=== PATIENT | female | born 1970 | race Caucasian/White ===

== ENCOUNTER 2018-06-14 09:39 | Emergency (ER) | payer OTHER ==
[~2018-06-14] VITALS: Ht 160 cm; Wt 72.6 kg
[2018-06-14 09:56] VITALS: BP 148/92
[2018-06-14] MEDS: ONDANSETRON 4 MG ODT PO ONE (10:36)
[2018-06-14] MEDS: KETOROLAC 60 MG/2 ML VIAL IM ONE (10:40)
[2018-06-14 11:40] VITALS: BP 148/92
== END 2018-06-14 11:40 | disposition home or self-care (01) ==
LOC: MED 09:39
DX: J32.9 Chronic sinusitis, unspecified (principal); R11.2 Nausea with vomiting, unspecified; M54.2 Cervicalgia; Z88.0 Allergy status to penicillin
CPT/HCPCS: 81002; 81025; 96372; 99283; J1885; Q0162

== ENCOUNTER 2023-06-27 22:31 | Emergency (ER) | payer OTHER ==
[~2023-06-27] VITALS: Ht 162.6 cm; Wt 67.1 kg
[2023-06-27 22:45] VITALS: BP 116/70; PULSE 90; RESP 18; TEMP 97.9; O2SAT 97
[2023-06-28 01:04] LABS: FLU A ANTIGEN negative (NEGATIVE); FLU B ANTIGEN NEGATIVE (NEGATIVE)
[2023-06-28] MEDS ORDERED: guaiFENesin DM 200/20 MG-10 ML 10 ML UDC PO ONE (01:10)
[2023-06-28] MEDS ORDERED: CETI10TA81 PO (01:13)
[2023-06-28] MEDS ORDERED: GUAI10LI4 PO (01:13)
[2023-06-28 01:30] VITALS: BP 116/70; PULSE 90; RESP 18; TEMP 97.9; O2SAT 97
== END 2023-06-28 01:30 | disposition home or self-care (01) ==
LOC: MED 22:31
DX: J06.9 Acute upper respiratory infection, unspecified (principal); Z20.822 Contact with and (suspected) exposure to COVID-19; Z88.0 Allergy status to penicillin; Z79.899 Other long term (current) drug therapy
CPT/HCPCS: 99283